=== PATIENT | male | born 1970 | race Caucasian/White ===

== ENCOUNTER 2016-10-30 14:51 | Emergency (ER) | payer OTHER ==
[~2016-10-30] VITALS: Ht 182.9 cm; Wt 81.6 kg
[~2016-10-30 14:51] MED LIST: DIAZEPAM5 MG PO; ESZOPICLONE3 MG PO; OXYCODONE HCL15 MG PO
[2016-10-30 14:55] VITALS: BP 137/81
--- NOTE | 2016-10-30 16:22 | ED NECK/BACK PAIN COMPLAINT ---
History of Present Illness General Chief Complaint: Low Back Pain/Injury Stated Complaint: LBP Source: patient Exam Limitations: no limitations Vital Signs & Intake/Output Vital Signs & Intake/Output Vital Signs Date Time Temp Pulse Resp B/P Pulse O2 O2 Flow FiO2 Ox Delivery Rate 10/30 1455 98.1 63 20 137/81 96 Room Air Allergies Coded Allergies: NO KNOWN ALLERGIES (03/27/15) Reconcile Medications Cyclobenzaprine HCl 10 MG TABLET 1 TAB PO QPM PRN MUSCLE SPASMS Diazepam 5 MG TAB PAIN, MUSCLE SPASMS (Reported) Eszopiclone 3 MG TAB INSOMNIA (Reported) Hydrocodone/Acetaminophen ([place] 5-325 Tablet) 5 MG-325 MG TABLET 1-2 TAB PO Q4-6 PRN PRN PAIN Methylprednisolone. (Medrol) 4 MG TAB.DS.PK 1 DP PO AD BACK PAIN 6 on day 1 then reduce by one tablet daily until gone OXYCODONE HCL (Oxycodone HCl) 15 MG TAB PAIN (Reported) Triage Note: RECEIVED 46 YO MALE C/O MID LOWER BACK PAIN, STARTED DURING SNOWSTORM SHOVELING SNOW. CONSTANT PAIN Triage Nurses Notes Reviewed? yes Onset: Gradual Duration: day(s): (2) Timing: remote history Quality/Severity: moderate Location: lumbar spine, paraspinous muscles Radiation: buttocks, upper legs Context: SHOVELING Method of Injury: twisted Loss of Consciousness: no loss of consciousness HPI: Patient is a 46-year-old male with history of low back pain presenting to the emergency department complaining of worsening low back pain over the past 2-3 days. He reports that pain is achy throbbing worse with any range of motion. This impressive the pain radiates into the buttock and upper legs. Denies numbness or tingling. No lower extremity weakness. Denies urinary incontinence or retention. Has been using ibuprofen [id number] with little relief. Denies any abdominal pain. No chest pain shortness of breath or palpitations. (ZARA YANES) Past History Travel History Traveled to [place] past 21 day No Medical History Any Pertinent Medical History? see below for history Musculoskeletal: chronic back pain, disk herniation Surgical History Surgical History: N CYST REMOVAL-LEFT ARM Psychosocial History What is your primary language Gambian Tobacco Use: Current Daily Use Daily Tobacco Use Amount/Type: => 5 Cigarettes daily Family History Hx Contributory? No (ZARA YANES) Review of Systems Review of Systems Constitutional: Reports: no symptoms. Comments Review of systems: See HPI, All other systems negative. Constitutional, no chills fever or weight loss HEENT: No visual changes no sore throat no congestion Cardiovascular: No chest pain ,palpitation , orthopnea or ankle swelling Skin, no jaundice no rashes Respiratory: No dyspnea cough sputum or hemoptysis GI: No nausea no vomiting : No dysuria No hematuria Muscle skeletal: no neck pain, Neurologic: No numbness no confusion Psych: No stress anxiety or depression,. Heme/endocrine: No bruising no bleeding no polyuria or polydipsia Immunology: No splenectomy or history of AIDS (ZARA YANES) Physical Exam Physical Exam General Appearance: well developed/nourished, no apparent distress, alert, awake , comfortable Neck: normal inspection, supple, full range of motion, normal alignment Comments: Well-developed well-nourished person in no acute distress HEENT: Pupils equally round and reactive to light and accommodation. Nose is atraumatic. Neck: Supple, no lymphadenopathy, normal range of motion without pain or tenderness, no C-spine tenderness. Back: Tender to palpation in the lumbar paraspinal region, positive muscle spasms present bilaterally. No bony tenderness to palpation. Limited range of motion secondary to pain especially with forward flexion. Positive straight leg raise bilaterally at approximately 40. Cardiovascular: Regular rate and rhythms no murmurs rubs or gallops, normal JVP Respiratory: Chest nontender. No respiratory distress.breath sounds clear to auscultation bilaterally Abdomen: Soft, nontender nondistended, no appreciable organomegaly. Normal bowel sounds. No ascites Extremity: No edema Neuro: Alert oriented x3, motor sensory normal, patellar reflexes are 2+ bilaterally. Skin: No appreciable rash on exposed skin, skin is warm and dry. Psych: Mood and affect is normal, memory and judgment is normal. (ZARA YANES) Progress Differential Diagnosis: cauda equina syn, herniated disc, myofascial strain, pyelo/UTI, sciatica Plan of Care: Current Medications Sig/Kathia Start time Last Medication Dose Stop Time Status Admin Diazepam 5 MG ONCE ONE 10/30 1630 UNVr (Valium) 10/30 1631 Ketorolac 60 MG ONCE ONE 10/30 1629 UNVr Tromethamine 10/30 1631 (Toradol) Comments: Feeling improved after IM Toradol and by mouth Valium. Likely muscle strain. Patient will be treated symptomatically and follow up with PCP. Patient nontoxic. No signs of cauda equina. (ZARA YANES) Departure Departure Time of Disposition: 1649 Disposition: HOME OR SELF CARE Condition: Stable Clinical Impression Primary Impression: Back pain Qualifiers: Back pain location: low back pain Chronicity: unspecified Back pain laterality: bilateral Sciatica presence: with sciatica Sciatica laterality: bilateral sciatica Qualified Codes: M54.42 - Lumbago with sciatica, left side; M54.41 - Lumbago with sciatica, right side Referrals: MAINE GUZMAN,ROMEO Krishnan (PCP/Family) Additional Instructions: Follow-up with your primary care physician call to make an appointment. He will likely need MRI if symptoms persist. Take Flexeril as prescribed to help with muscle spasms. Tegmental Dosepak to help with inflammation. Use [place] as prescribed to help with severe pain. Departure Forms: Customer Survey General Discharge Information Prescriptions: Current Visit Scripts Cyclobenzaprine HCl 1 TAB PO QPM PRN MUSCLE SPASMS #15 TAB Methylprednisolone. (Medrol) 1 DP PO AD #1 DP 6 on day 1 then reduce by one tablet daily until gone Hydrocodone/Acetaminophen ([place] 5-325 Tablet) 1-2 TAB PO Q4-6 PRN PRN PAIN #10 TAB (ZARA YANES) PA/HOME AGENT Co-Sign Statement Statement: ED Attending supervision documentation- [] I saw and evaluated the patient. I have also reviewed all the pertinent lab results and diagnostic results. I agree with the findings and the plan of care as documented in the PA's/HOME AGENT's documentation. x I have reviewed the ED Record and agree with the PA's/HOME AGENT's documentation. [] Additions or exceptions (if any) to the PAs/HOME AGENT's note and plan are summarized below: [] (TRACEE GUZMAN,JULIUS)
[2016-10-30] MEDS ORDERED: NORCO 5-325 TA1 EACH PO (16:52)
[2016-10-30] MEDS ORDERED: CYCLOBENZAPRINE10 M1 PO (16:52)
[2016-10-30] MEDS ORDERED: MEDROL4 M2 PO (16:52)
== END 2016-10-30 16:52 ==
LOC: ERH 14:51
DX: M54.5 Low back pain (principal)
CPT/HCPCS: 96372; J1885; J3360

== ENCOUNTER 2018-06-07 09:54 | Emergency (ER) | payer OTHER ==
[~2018-06-07] VITALS: Ht 185.4 cm; Wt 86.2 kg
[~2018-06-07 09:54] MED LIST changes: +CYCLOBENZAPRINE10 M1 PO; +MEDROL4 M2 PO; +NORCO 5-325 TA1 EACH PO
[2018-06-07 09:56] VITALS: BP 135/63
== END 2018-06-07 11:00 | disposition admitted as inpatient to this hospital (09) ==
LOC: ERH 09:54
DX: M54.5 Low back pain (principal)